=== PATIENT | male | born 1995 | race Asian ===

== ENCOUNTER 2018-08-11 22:12 | Emergency (ER) | payer OTHER ==
[~2018-08-11] VITALS: Ht 182.9 cm; Wt 83.6 kg
[2018-08-12 00:30] VITALS: BP 120/80
--- NOTE | 2018-08-12 08:36 | REP ---
Clinical: Trauma/fall with pain . Technique: AP, lateral, bilateral oblique views right hand . Findings: The osseous structures and joint spaces are intact and normal. There is no evidence for acute fracture or dislocation. Surrounding soft tissues are unremarkable. No subcutaneous emphysema or radiodense foreign body. Impression: Normal right hand series . No acute fracture or dislocation. Electronically Signed by Darrell Velasquez MD 08/12/2018 07:24 A
== END 2018-08-12 00:31 | disposition home or self-care (01) ==
LOC: M ED 22:12
DX: S63.91XA Sprain of unspecified part of right wrist and hand, initial encounter (principal); W19.XXXA Unspecified fall, initial encounter; Y92.89 Other specified places as the place of occurrence of the external cause; Z87.828 Personal history of other (healed) physical injury and trauma

== ENCOUNTER 2019-01-18 15:38 | Emergency (ER) | payer OTHER ==
[~2019-01-18] VITALS: Ht 185.4 cm; Wt 82.4 kg
--- NOTE | 2019-01-18 16:29 | REP ---
Clinical: Pain Technique: AP, lateral, bilateral oblique views left wrist . Findings: The carpal bones, surrounding osseous structures, soft tissues, and joint spaces are normal. There is no evidence for acute fracture or dislocation. No subcutaneous emphysema or radiodense foreign body. Impression: Normal left wrist series. No acute fracture or dislocation Electronically Signed by Darrell Velasquez MD 01/18/2019 04:21 P
[2019-01-18 16:38] VITALS: BP 126/68
== END 2019-01-18 16:51 | disposition home or self-care (01) ==
LOC: M ED 15:38
DX: S63.502A Unspecified sprain of left wrist, initial encounter (principal); X50.0XXA Overexertion from strenuous movement or load, initial encounter; Y92.39 Other specified sports and athletic area as the place of occurrence of the external cause; Y93.89 Activity, other specified; Y99.9 Unspecified external cause status